=== PATIENT | female | born 1950 | race Caucasian/White ===

== ENCOUNTER 2020-12-27 12:07 | Inpatient (IN) | payer OTHER ==
[2020-12-24 11:44] LABS: Basophils # (auto) 0.1 10 ^3/uL (0-0.2); Basophils % (auto) 1.8 % (0.0-2.0); Eosinophils # (auto) 0.1 10 ^3/uL (0-0.8); Eosinophils % (auto) 1.2 % (0.0-7.0); Hematocrit 41.6 % (36.0-46.0); Lymphocytes # (auto) 1.9 10 ^3/uL (0.4-5.4); Lymphocytes % (auto) 33.4 % (10.0-50.0); Mean Corpuscular Hgb Conc. 33.6 g/dL (32.0-36.0); Mean Corpuscular Volume 92.4 fL (80.0-100.0); Monocytes # (auto) 0.4 10 ^3/uL (0-1.3); Monocytes % (auto) 6.9 % (0.0-12.0); Neutrophils # (auto) 3.1 10 ^3/uL (1.6-8.6); Neutrophils % (auto) 56.7 % (37.0-80.0); Nucleated Red Blood Cells % 0.1 %; Red Blood Cells 4.51 10^6/uL (4.0-5.20); Red Cell Distribution Width 13.6 % (11.8-14.3); White Blood Cell 5.6 10^3/uL (4.4-10.8)
[2020-12-24 12:27] LABS: Albumin 3.9 g/dL (3.4-5.0); Calcium 9.2 mg/dL (8.5-10.1); Potassium 3.7 mmol/L (3.5-5.1)
[2020-12-24 12:31] LABS: BUN/Creatinine Ratio 13.1; Bilirubin, Total 0.6 mg/dL (0.2-1.0); Total Protein 7.4 g/dL (6.4-8.2)
[~2020-12-27] VITALS: Ht 157.5 cm; Wt 53.5 kg
[~2020-12-27 12:07] MED LIST: CHOL20007 PO; TRAZ100T3 PO
[2020-12-27] MEDS ORDERED: ceFAZolin 1GM/50ML 100 ML IV ONE (14:30)
[2020-12-27] MEDS ORDERED: ROCURONIUM 10MG/ML 10ML VIAL IV ONE (15:00)
[2020-12-27] MEDS ORDERED: MIDAZOLAM HCL 2MG/2ML 2ml VIAL (1mg/ml) ONE (15:00)
[2020-12-27] MEDS ORDERED: fentaNYL CITRATE 100 MCG/2 ML VL ONE (15:00)
[2020-12-27] MEDS ORDERED: fentaNYL CITRATE 5 ML ONE (15:02)
[2020-12-27] MEDS ORDERED: HYDROmorphone HCL 2 MG/ML VL ONE (15:03)
[2020-12-27] MEDS ORDERED: PROPOFOL 10 MG/ML 20 ML IV ONE (15:07)
[2020-12-27] MEDS ORDERED: LIDOCAINE 2% (LOCAL ANESTH.) PF 5ml SDV ONE (15:07)
[2020-12-27] MEDS ORDERED: ONDANSETRON HCL 4 MG/2 ML VIAL ONE (15:07)
[2020-12-27] MEDS ORDERED: LIDOCAINE 1%-Mpf/Epinephrine 1:200,000 ONE (15:58)
[2020-12-27] MEDS ORDERED: CONJ ESTROGENS 0.625MG/GM VAG CRM 30GM PV ONE (15:58)
[2020-12-27] MEDS ORDERED: ACETAMINOPHEN 500 MG TAB PO PRN (16:45)
[2020-12-27] MEDS ORDERED: LACTATED RINGER'S 1,000 ML IV SCH (16:45)
[2020-12-27] MEDS ORDERED: HYDROmorphone HCL 2 MG/ML VL IV PRN (17:00)
[2020-12-27] MEDS ORDERED: NITROGLYCERIN 0.4 MG SL TAB SL PRN (17:00)
[2020-12-27] MEDS ORDERED: ONDANSETRON HCL 4 MG/2 ML VIAL IV PRN (17:00)
[2020-12-27] MEDS ORDERED: MORPHINE SULFATE INJECTION 2 MG/ML SYRG IV PRN ×2 (17:00→17:15)
[2020-12-27 18:09] VITALS: BP 140/51
[2020-12-27] MEDS: ONDANSETRON HCL 4 MG/2 ML VIAL IV PRN (19:00)
[2020-12-27] MEDS: LACTATED RINGER'S 1,000 ML IV SCH (19:30)
[2020-12-27] MEDS: ceFAZolin 1GM/50ML 50 ML IV SCH (21:56)
[2020-12-27 22:00] VITALS: BP 108/58
[2020-12-28] MEDS: ONDANSETRON HCL 4 MG/2 ML VIAL IV PRN (02:08)
[2020-12-28] MEDS: LACTATED RINGER'S 1,000 ML IV SCH (03:02)
[2020-12-28 05:00] VITALS: BP 130/60
[2020-12-28] MEDS: ceFAZolin 1GM/50ML 50 ML IV SCH ×2 (05:39→14:00)
[2020-12-28 05:56] LABS: Basophils # (auto) 0 10 ^3/uL (0-0.2); Basophils % (auto) 0.2 % (0.0-2.0); Eosinophils # (auto) 0 10 ^3/uL (0-0.8); Hematocrit 33.1 % (36.0-46.0); Hemoglobin 11.2 g/dL (12.2-16.2); Lymphocytes # (auto) 0.9 10 ^3/uL (0.4-5.4); Lymphocytes % (auto) 10.1 % (10.0-50.0); Mean Corpuscular Hemoglobin 31.7 pg (28.0-32.0); Mean Corpuscular Hgb Conc. 33.8 g/dL (32.0-36.0); Mean Corpuscular Volume 93.5 fL (80.0-100.0); Monocytes # (auto) 0.4 10 ^3/uL (0-1.3); Neutrophils # (auto) 7.1 10 ^3/uL (1.6-8.6); Neutrophils % (auto) 84.7 % (37.0-80.0); Nucleated Red Blood Cells % 0.1 %; Red Blood Cells 3.54 10^6/uL (4.0-5.20); Red Cell Distribution Width 13.5 % (11.8-14.3); White Blood Cell 8.4 10^3/uL (4.4-10.8)
[2020-12-28 06:18] LABS: Calcium 8.2 mg/dL (8.5-10.1); Potassium 4.8 mmol/L (3.5-5.1)
[2020-12-28 06:23] LABS: BUN/Creatinine Ratio 13.3; Bilirubin, Total 0.5 mg/dL (0.2-1.0); Total Protein 5.6 g/dL (6.4-8.2)
[2020-12-28] MEDS ORDERED: HYDROcodone-ACET 10/325MG TAB PO PRN (08:30)
[2020-12-28 09:00] VITALS: BP 113/84
[2020-12-28 13:00] VITALS: BP 136/66
[2020-12-28 17:00] VITALS: BP 137/68
[2020-12-28 17:07] VITALS: BP 136/66
== END 2020-12-28 18:17 | disposition home or self-care (01) | DRG 743 ==
LOC: SUR 12:07 → OVERFLOW 16:48 → WEST WING 18:10
PROVIDERS: ADMIT Obstetrics & Gynecology; ATTEND Obstetrics & Gynecology
PROC: 0UT2FZZ Resection of Bilateral Ovaries, Via Natural or Artificial Opening With Percutaneous Endoscopic Assistance (ICD-10-PCS; 2020-12-27)
PROC: 0UT7FZZ Resection of Bilateral Fallopian Tubes, Via Natural or Artificial Opening With Percutaneous Endoscopic Assistance (ICD-10-PCS; 2020-12-27)
PROC: 0UT9FZZ Resection of Uterus, Via Natural or Artificial Opening With Percutaneous Endoscopic Assistance (ICD-10-PCS; principal; 2020-12-27 15:00)
DX: N81.4 Uterovaginal prolapse, unspecified (principal); F17.200 Nicotine dependence, unspecified, uncomplicated; N81.89 Other female genital prolapse; Z82.49 Family history of ischemic heart disease and other diseases of the circulatory system; Z83.3 Family history of diabetes mellitus; Z20.822 Contact with and (suspected) exposure to COVID-19
CPT/HCPCS: 36415; 80053; 85025; 86850; 86900; 86901; 87086; G0378; J0690; J2001; J2250; J2405; J2704

== ENCOUNTER → 2021-01-05 | Outpatient (CLI) | payer OTHER | END | disposition home or self-care (01) | LOC: LAB 09:20 | PROVIDERS: ATTEND Obstetrics & Gynecology | DX: R19.7 Diarrhea, unspecified (principal) | CPT/HCPCS: 87493 ==